=== PATIENT | female | born 2005 | race Caucasian/White ===

== ENCOUNTER 2024-01-21 22:57 | Emergency (ER) | payer MEDICAID ==
[~2024-01-21] VITALS: Ht 162.6 cm; Wt 78.0 kg
[2024-01-21 23:04] VITALS: O2SAT 99
[2024-01-22] MEDS ORDERED: IBUP-2029 MT (00:43)
[2024-01-22] MEDS ORDERED: T3 PO (00:43)
[2024-01-22] MEDS ORDERED: AMOX-494 MT (00:43)
[2024-01-22 01:49] VITALS: BP 101/67; PULSE 87; RESP 18; TEMP 36.89184; O2SAT 99
== END 2024-01-22 01:50 | disposition home or self-care (01) ==
LOC: ER 22:57
DX: K08.89 Other specified disorders of teeth and supporting structures (principal)
CPT/HCPCS: 81025; 99283